=== PATIENT | female | born 1970 | race Caucasian/White ===

== ENCOUNTER 2024-11-23 14:48 | Outpatient (AMB) | payer MEDICARE, SELFPAY ==
[2024-11-23 15:01] VITALS: BP 133/60; PULSE 69; RESP 20; O2SAT 100; BMI 27.3
--- NOTE | 2024-11-23 15:01 | MHC.OFFVIS ---
Vital Signs 11/23/24 15:01 Height 4 ft 11 in Weight 135 lb BMI 27.3 BP 133/60 Blood Pressure Location Lt brachial Position Sitting Respiration 20 Pulse 69 Pulse Source Pulse Oximeter Pulse Oximetry (%) 100 Oxygen Delivery Method Room Air Intake Visit Reasons: Chronic Bilateral Low Back Pain Physician Vice President Required: No Allergies No Known Allergies Allergy (Verified 11/23/24 15:02) HPI Comments Details: Marguerite is very pleasant 53 years old female who presents in my office with complains on multiple pain generators including pain in the lower back with radiation to the right hip and right mid thigh but not below that level as well as pain in the neck pain in the right shoulder pain in the right elbow and pain in the left wrist she also complains on pain in bilateral feet. She reports that pain started 5 years ago without inciting events. Because of her pain she can not sleep normally can not do activities of daily living can not take care of herself can not function normally she is on permanent disability. She needs walker for ambulation cold application weather changes and motions aggravate her pain she reports pain most severe in stent standing and prolonged walking. Forward also aggravate her pain. Heat applications and oral medications make her pain slightly better. Her pain is most severe in the morning and less severe in the early afternoon. In terms of tissue damage he reports her pain as pulsing throbbing pounding, tingling stinging, dull hurting heavy, tiring exhausting, tight squeezing and tearing sensation. She had multiple sessions of physical therapy in the past without any improvement. She had chiropractic manipulation with minimal short-lived improvement. She had massage therapy with short improvement. She had herbal and homeopathic treatment without improvement. She tried NSAIDs without any help, she tried Tylenol without pain improvement. She had x-ray of the lumbar spine which demonstrated significant spondylosis, unfortunately I do not have formal report of this study but the patient gave me the report to read on herself phone. She never received any injections. She reports past medical history of syncope fatigue and headaches she reports anemia shortness of breath and asthma she is diabetic she has digestive problem and arthritis she is suffering from PTSD. She denies any surgery. She denies smoking cigarettes admits rare alcohol drinks admits daily caffeinated beverages and she denies recreational drugs. Review of Systems Const All systems reviewed & are unremarkable except as noted in HPI and below ENT Reports Normal hearing present Neuro Reports Normal hearing present, Denies Abnormal speech present, Denies confusion and Denies Sensory deficit (Neuro) Psych Denies confusion Physical Exam Vital Signs: Last Vital Signs Pulse 69 11/23/24 15:01 Resp 20 11/23/24 15:01 BP 133/60 11/23/24 15:01 Pulse Ox 100 11/23/24 15:01 Oxygen Delivery Method Room Air 11/23/24 15:01 BMI result Body Mass Index 27.3 Const General: no acute distress; No confusion Orientation/consciousness: patient oriented x3 and No confusion Eyes General: appearance normal, both eyes and all related structures Pupils: Equal, round and reactive pupils present EOM: EOMs intact bilaterally Neck Neck: Yes full ROM Chest Chest palpation & inspection: normal inspection of the chest Resp Effort & Inspection: normal respiratory effort, able to speak in complete sentences, normal respiratory pattern, no audible wheezes and no cough Cardio Jugular venous distension: no JVD GI Inspection: Yes normal to inspection Back/Spine/Pelvis Other: Able to stand on bilateral tiptoes in bilateral heels. Able to flex herself forward with difficulty denies any difficulty flexing backwards. Maynor test, Gaenslen test, pelvic compression test, 14 finger test are positive bilaterally more on the right and less on, loading test is positive bilaterally as well. SLR is negative bilaterally. Lasegue test is negative bilaterally. Neuro General: patient oriented x3, gait normal and No confusion Cranial nerves: Yes CN's II-XII intact bilaterally, Yes Equal, round and reactive pupils present, Yes Normal hearing present and Yes Ability to bilaterally elevate shoulders present Speech: No Abnormal speech present Gait exam (Neuro): Normal gait present Motor exam (neuro): 5/5 motor strength present throughout Sensory Exam: No Sensory deficit (Neuro) Extrem General: No pedal edema Psych Speech and movement: Normal speech and movement present Affect: normal affect Attitude: cooperative Thought process: Normal thought process present Thought content: Normal thought content present Insight: Good insight present (Psych) Judgement: Good judgement present (Psych) Assessment & Plan Assessment & Plan (1) Spondylosis of lumbar region without myelopathy or radiculopathy: Code(s): M47.816 - Spondylosis without myelopathy or radiculopathy, lumbar region Category: Medical (2) Sacroiliitis: Code(s): M46.1 - Sacroiliitis, not elsewhere classified Category: Medical (3) Sacroiliac joint dysfunction of both sides: Code(s): M53.3 - Sacrococcygeal disorders, not elsewhere classified Category: Medical (4) Chronic pain syndrome: Code(s): G89.4 - Chronic pain syndrome Category: Medical Plan 1. This patient exhausted conservative measures. Oswestry disability pain score was administered to her today total score is 32 and therefore patient has severe disability. 2. Patient is suffering from spondylosis of the lumbar spine and sacroiliitis. I offered her diagnostic sacroiliac joint injection bilateral 1st. We will evaluate the results of the injection in probably proceed after that with therapeutic sacroiliac joint injections. 3. After that the patient will be scheduled for diagnostic medial branch block L3, L4, dorsal ramus L5 bilateral to assess the results of this injection on her pain. Next appointment will be scheduled after the diagnostic sacroiliac joint injection. Coding Level of Care Code New Pt Level 3 (02422) Diagnoses Spondylosis of lumbar region without myelopathy or radiculopathy M47.816 Sacroiliitis M46.1 Sacroiliac joint dysfunction of both sides M53.3 Chronic pain syndrome G89.4
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
--- OUTSIDE RECORDS SUMMARY | 2024-11-23 15:21 | XMS_ITS | Clinical Summary ---
Author Organization [employer] Address [address] [place] [address] Care Team Providers Care Electric Mule Driver Name Role Phone Anna Magana MD Primary Care Provider Allergies No known active allergies Medications cyclobenzaprine (FLEXERIL) 5 mg tablet Take 1 tablet (5 mg total) by mouth 3 (three) times a day for 5 days. 15 tablet 12/20/2020 Active Active Problems No known active problems Social History Tobacco Use Types Packs/Day Years Used Date Smoking Tobacco: Never Assessed Comments Unknown Sex and Gender Information Value Date Recorded Sex Assigned at Not on file Legal Sex Female 9:58 PM EDT Gender Identity Not on file Sexual Orientation Not on file Last Filed Vital Signs Vital Sign Reading Time Taken Comments Blood Pressure 136/77 12/20/2020 2:56 AM EDT Pulse - - Temperature 36.7 C (98 F) 12/20/2020 2:56 AM EDT Respiratory Rate 12 12/20/2020 2:56 AM EDT Oxygen Saturation 97% 12/20/2020 2:56 AM EDT Inhaled Oxygen Concentration - - Weight - - Height - - Body Mass Index - - Plan of Treatment Health Maintenance Due Date Last Done Comments CT Colonography 1969 Colonoscopy 1969 Colorectal Cancer Screening 1969 FIT-DNA 1969 FIT 1969 FOBT 1969 Mammogram 1969 Sigmoidoscopy 1969 Medicare Annual Wellness Visit 12/02/1987 Tdap and Td Vaccines Adult 1988 Pap Smear 1990 Cervical Cancer Screening 12/02/1999 HPV/Cotest 12/02/1999 Pneumococcal Vaccine: 50+ Ye ars (1 of 1 - PCV) 12/02/2019 Zoster Vaccines (1 of 2) 12/02/2019 COVID-19 Vaccine (1 - 2023-2 5 season) 2024 Influenza Vaccine (#1) 2025 HIB Vaccines Aged Out No longer eligi ble based on patient's age to complete this topic HPV Vaccines (No Doses Required) Completed Hepatitis A Vaccines Aged Out No long er eligible based on patient's age to complete this topic IPV Vaccines Aged Out No longer eligi ble based on patient's age to complete this topic Meningococcal Vaccine Aged Out No temi ravi eligible based on patient's age to complete this topic RSV <20 Months Aged Out No longer simón gible based on patient's age to complete this topic Insurance MEDICAID OUT-STATE MEDICARE MANAGED MEDICARE GENERIC Care Teams Electric Mule Driver Relationship Specialty Start Date End Date Anna Magana MD PCP - General Internal Medicine 12/19/20
== END 2024-11-23 15:17 | disposition home or self-care (01) ==
LOC: HO.PMC 14:49
PROVIDERS: PCP Internal Medicine; Referring Provider Physician Assistant; Visit Provider Anesthesiology
DX: G89.4 Chronic pain syndrome (principal); M47.816 Spondylosis without myelopathy or radiculopathy, lumbar region; M46.1 Sacroiliitis, not elsewhere classified; M53.3 Sacrococcygeal disorders, not elsewhere classified
CPT/HCPCS: 99203

== ENCOUNTER → 2024-11-23 14:48 | Outpatient (BNVA) | payer MEDICARE, SELFPAY | PROVIDERS: PCP Internal Medicine; Referring Provider Physician Assistant; Visit Provider Anesthesiology | DX: M47.816 Spondylosis without myelopathy or radiculopathy, lumbar region (principal); M46.1 Sacroiliitis, not elsewhere classified; M53.3 Sacrococcygeal disorders, not elsewhere classified; G89.4 Chronic pain syndrome | CPT/HCPCS: 99202 ==

== ENCOUNTER 2025-01-24 06:17 | Outpatient (REF) | payer OTHER, SELFPAY ==
--- NOTE | ~2025-01-24 | FL_ITS ---
EXAMINATION: FL GUIDANCE ONLY HISTORY: M53.3 - Sacrococcygeal disorders, not elsewhere classified COMPARISON: None available. TECHNIQUE: Fluoroscopy time: 0.3 minutes. Cumulative Dose: 4.62 mGy. DAP: 0.0550 mGym2 Images: 4. FINDINGS: Fluoroscopic spot films of the pelvis demonstrate needles in the regions of the bilateral sacroiliac joints. FL/FL guidance in treatment room IMPRESSION: Fluoroscopy during procedure. Please see procedure report for additional information. Electronically signed by: Chucho Jurado MD 01/24/2025 08:25 AM EDT
--- OUTSIDE RECORDS SUMMARY | 2025-01-24 06:20 | XMS_ITS | Clinical Summary ---
Author Organization [employer] Address [address] [place] [id number] Care Team Providers Care Rubber Engraver Name Role Phone Anna Magana MD Primary [...] COVID-19 Vaccine (1 - 2023-2 5 season) 2025 Influenza Vaccine (#1) 2025 HIB Vaccines Aged [...] OUT-STATE MEDICARE MANAGED MEDICARE GENERIC Care Teams Rubber Engraver Relationship Specialty Start Date End Date Anna Magana MD PCP - General Internal Medicine 12/19/20
--- OUTSIDE RECORDS SUMMARY | 2025-01-24 06:20 | XMS_ITS | Encounter Summary ---
Author Organization [facility] Address [address] [place] [address] Care Team Providers Care Courtesy Van Driver Name Role Phone Anna Magana MD Primary Care Provider [phone] Encounter Details Date Type Department Care Team ([facility] st Contact Info) Description 12/20/2020 Procedure Pass [facility], Radiology (CT Scan) [address] [place] [id number] Social History Tobacco Use Types Packs/Day Years Used Date Smoking Tobacco: Never Assessed Comments Unknown Sex and Gender Information Value Date Recorded Sex Assigned at Not on file Legal Sex Female 9:58 PM EDT Gender Identity Not on file Sexual Orientation Not on file COVID-19 Exposure Response Date Recorded In the last month, have you been in contact with someone who was confirmed or suspected to have Coronavirus / COVID-19? No / Unsure 12/19/2020 10:25 PM EDT documented as of this encounter Plan of Treatment Not on file documented as of this encounter Visit Diagnoses Not on filedocumented in this encounter Care Teams Courtesy Van Driver Relationship Specialty Start Date End Date Anna Magana MD PCP - General Internal Medicine 12/19/20 documented as of this encounter
--- OUTSIDE RECORDS SUMMARY | 2025-01-24 06:20 | XMS_ITS | Clinical Summary ---
Author Organization [address] [place] [address] Address [address] [place] [address] Phone Care Team Providers Care Bias Binding Cutter Name Role Phone Nick Estevez MD Primary Care Provider [phone] Allergies Active Allergy Reactions Criticality Noted Date Comments Animal Dander 07/04/2024 ducks Cat Dander 07/04/2024 House Dust 02/26/2024 Medications gabapentin (NEURONTIN) 800 mg tablet Take 1 tablet (800 mg total) by mouth at bedtime. Active citalopram (CeleXA) 20 mg tablet Take 1 tablet (20 mg total) by mouth 1 (one) time each day. Active tiZANidine (ZANAFLEX) 4 mg capsule Take 1 capsule (4 mg total) by mouth 3 (three) times a day. Active albuterol HFA (PROAIR HFA ; PROVENTIL HFA ; VENTOLIN HFA) 90 mcg/actuation inhaler Inhale 2 puffs by mouth every 6 (six) hours if needed for wheezing. Active simvastatin (ZOCOR) 20 mg tablet Take 1 tablet (20 mg total) by mouth at bedtime. Active oxyBUTYnin (DITROPAN) 5 mg tablet Take 1 tablet (5 mg total) by mouth 1 (one) time each day. Active multivitamin tablet Take 1 tablet by mouth 1 (one) time each day. 024 Active fludrocortisone (FLORINEF) 0.1 mg tabletIndicatio ns:Familial dysautonomia (fernanda-day) (CMS/HCC V24, CMS/HCC V28) TAKE 1 TABLET BY MOUTH EVERY DAY 90 tablet 1 025 Active prazosin (MINIPRESS) 2 mg capsule Take 1 capsule (2 mg total) by mouth at bedtime. Active blood-glucose meter misc Use daily or as directed for monitoring of diabetes. 1 each 025 2025 Active lancets lancets Check blood sugar 4 times a day or as directed. 200 each 025 2025 Active glucose blood test strip Pt test 4 times a day 100 each 025 2025 Active glipiZIDE (GLUCOTROL XL) 2.5 mg 24 hr tablet Take 1 tablet (2.5 mg total) by mouth 1 (one) time each day. 90 tablet 1 025 Active Trulicity 0.75 mg/0.5 mL pen injector injection INJECT 0.75 MG SUBCUTANEOUSLY ONE TIME PER WEEK 6 mL 1 025 Active Wixela Inhub 100-50 mcg/dose diskus inhaler INHALE 1 PUFF BY MOUTH 2 TIMES A DAY 60 each 3 025 Active folic acid (FOLVITE) 1 mg tablet TAKE 1 TABLET BY MOUTH EVERY DAY 90 tablet 025 Active pantoprazole (PROTONIX) 40 mg EC tablet TAKE 1 TABLET BY MOUTH EVERY MORNING (BEFORE BREAKFAST) 90 tablet 025 Active pantoprazole (PROTONIX) 40 mg EC tablet TAKE 1 TABLET BY MOUTH EVERY MORNING (BEFORE BREAKFAST) 90 tablet 1 025 2024 Discontinued Active Problems Problem Noted Date Diagnosed Date Hyperlipidemia 07/04/2024 Assessment & Plan (07/04/2024 11:27 AM EST): I like patient to get a lipid panel drawn. I like her LDL to be under 100 closer to 70. Educated her on adhering to a cardiac healthy diet. Orders: Lipid panel; Future Lateral epicondylitis of right elbow 04/18/2024 Medial epicondylitis of right elbow 04/18/2024 LVH (left ventricular hypertrophy) 02/26/2024 Assessment & Plan (07/04/2024 11:27 AM EST): Amyloid workup was negative. Will look to update echocardiogram next year or if symptoms worsen, or new symptoms arise. Assessment & Plan (03/29/2024 10:22 AM EST): Patient had recent lab workup to rule out amyloidosis. Can monitor in the future with echocardiograms. Orders: ECG 12 lead Encounters Date Type Department Care Team Description 01/13/2025 Telephone [facility] - [address] [phone] Brittany Wright MD 01/11/2025 11:00 AM EDT Office Visit Urogynecology - [address] [place] [place] [address] Sada Phelps MD Nocturnal enuresis (Primary Dx); Urinary incontinence, unspecified type; Incontinence of feces with fecal urgency; Recurrent isolated sleep paralysis; Parasomnia of non-organic origin 12/23/2024 Telephone Gastroenterology - [place] [address] [place] [address] Char Sullivan MD 11/25/2024 9:03 AM EDT - 11/25/2024 11:59 PM EDT Hospital Encounter Radiology Department - [address] [phone] Encounter for screening mammogram for breast cancer Discharge Disposition: Home or Self Care from Last 3 Months Surgical History Surgery Date Site/Laterality Comments GASTRIC BYPASS COLONOSCOPY HERNIA REPAIR CARPAL TUNNEL RELEASE Bilateral 2001 for left, 2003 for right ESOPHAGOGASTRODUODENOSCOPY HYSTERECTOMY 2011 Medical History Medical History Date Comments Acute adjustment disorder with anxiety Asthma Diabetes mellitus (CMS/HCC V24, CMS/HCC V28) GERD (gastroesophageal reflux disease) Hyperlipidemia IBS (irritable bowel syndrome) Inguinal hernia PTSD (post-traumatic stress disorder) Osteoarthritis Carpal tunnel syndrome Depression Avascular necrosis (CMS/HCC V24, CMS/HCC V28) Family History Medical History Relation Name Comments other Maternal Grandfather Maternal Grandmother Breast cancer Other cousin-paternal other Paternal Grandfather other Paternal Grandmother Relation Name Status Comments Maternal Grandfather Maternal Grandmother Other cousin-paternal Alive Paternal Grandfather Paternal Grandmother Social History Tobacco Use Types Packs/Day Years Used Date Smoking Tobacco: Never Smokeless Tobacco: Never Alcohol Use Standard Drinks/Week Comments Not Currently 0 (1 standard drink = 0.6 oz pur e alcohol) Housing Instability Answer Date Recorde d Are you worried that in the next 2 months you may not have stable housing? No 10/04/2024 Food Access & Nutrition Answer Date Rec orded Do you have access to a vari ety of food including fruits and vegetables? Yes 10/04/2024 Access to Healthcare Answer Date Record ed Within the last 3 months, ho w many times did you visit the emergency department for your medical care? 0 10/04/2024 Health Literacy Answer Date Recorded How often do you need to hav e someone help you when you read instructions, pamphlets, or other written material from your doctor or pharmacy? Rarely 10/04/2024 Caregiver: How often do you need to have someone help you when you read instructions, pamphlets, or other written material from your doctor or pharmacy? Not on file 10/04/2024 Financial Risk Answer Date Recorded How hard is it for you to pa y for the very basics like food, housing, medical care, and air conditioning / heating? Somewhat hard 10/04/2024 Transportation Answer Date Recorded Has the lack of transportati on kept you from meetings, work, or from getting things needed for daily living? No Has the lack of transportati on kept you from medical appointments or from getting medications? No 10/04/2024 Social Isolation Answer Date Recorded How often do you feel lonely or isolated from those around you? Sometimes 10/04/2024 Food Risk Answer Date Recorded Within the past 12 months we worried whether our food would run out before we got money to buy more. Never true 10/04/2024 Within the past 12 months th e food we bought just didn't last and we didn't have money to get more. Never true 10/04/2024 Dependent Care Answer Date Recorded Do you need help finding or paying for care for your loved ones. For example, children's nursery assistant or elderly care for an older adult? No 10/04/2024 Education Answer Date Recorded Do you think completing more education or training, like finishing a GED, going to college, or learning a trade, would be helpful for you? Patient declined 10/04/2024 Employment and Income Answer Date Recor ded During the last four weeks, have you been actively looking for work? No 10/04/2024 Living Situation Answer Date Recorded What is your living situation? 0 10/04/2024 Comments No Sex and Gender Information Value Date Recorded Sex Assigned at Not on file Legal Sex Female 4:52 AM EST Gender Identity Not on file Sexual Orientation Not on file Obstetrics History Para Term AB IAB SAB Ectopic Multiple Livin g Live Births 3 3 3 3 Date Outcome GA Total Labor Labor// Weight Sex Type Anes PTL Reema A1 A5 Name Clin Term Term Term Last Filed Vital Signs Vital Sign Reading Time Taken Comments Blood Pressure 125/69 01/11/2025 11:04 AM EDT Pulse 74 01/11/2025 11:04 AM EDT Temperature 36.7 C (98.1 F) 10/04/2024 3:47 PM EDT Respiratory Rate 16 10/04/2024 3:47 PM EDT Oxygen Saturation 99% 07/04/2024 10:41 AM EST Inhaled Oxygen Concentration - - Weight 64.4 kg (142 lb) 01/11/2025 11:04 AM EDT Height 149.9 cm (4' 11 ) 10/04/2024 3:47 PM EDT Body Mass Index 28.68 10/04/2024 3:47 PM EDT Plan of Treatment Upcoming Encounters Date Type Department Care Team (Late st Contact Info) Description 02/06/2025 1:30 PM EDT Procedure visit Urogynecology [address] [phone] Sada Phelps MD [address] [facility] [address] [place] [address] Health Maintenance Due Date Last Done Comments Diabetes: Annual Retina Eye Exam 12/02/1979 Hepatitis B Vaccines (1 of 3 - 19+ 3-dose series) 1988 Pneumococcal Vaccine: 50+ Years (1 of 2 - PCV) 1988 Cervical Cancer Screening: HPV 1990 Zoster Vaccines (1 of 2) 12/02/2019 Colorectal Cancer Screening: Colonoscopy 04/19/2022 Medicare Annual Wellness Visit 04/19/2022 DTaP,Tdap,and Td Vaccines (2 - Td or Tdap) 07/20/2024 07/20/2014 COVID-19 Vaccine (3 - season) 2025 03/20/2022, 02/11/2021 Influenza Vaccine (#1) 2025 , 03/15/2019, 01/22/2018, Additional history exists Diabetes: Blood Sugar Control Test (HGBA1C) 02/08/2025 08/09/2024, 02/15/2024 Diabetes: Annual Urine Albumin-Creatinine Ratio (uACR) 08/09/2025 08/09/2024 Diabetes: Annual GFR (Glomerular Filtration Rate) 08/09/2025 08/09/2024 Social Influencers of Health Screening 10/04/2025 10/04/2024 Diabetes: Annual Foot Exam 10/11/2025 10/11/2024 Breast Cancer Screening 11/25/2026 11/26/19 25, 11/19/2023, 11/19/2023, Additional history exists Cholesterol Screening (Lipid Panel) 08/09/2029 08/09/2024 HIV Screening Completed 08/09/2024 Hepatitis C Screening Completed 08/09/2024 Depression Screening Completed 10/04/2024 HIB Vaccines Aged Out No longer eligi ble based on patient's age to complete this topic HPV Vaccines Aged Out No longer eligi ble based on patient's age to complete this topic Hepatitis A Vaccines Aged Out No long er eligible based on patient's age to complete this topic IPV Vaccines Aged Out No longer eligi ble based on patient's age to complete this topic MMR Vaccines Aged Out No longer eligi ble based on patient's age to complete this topic Meningococcal ACWY Vaccine Aged Out N o longer eligible based on patient's age to complete this topic Meningococcal B Vaccine Aged Out No l onger eligible based on patient's age to complete this topic RSV Immunization Patients Under 20 months Aged Out No longer eligible based on patient's age to complete this topic Varicella Vaccines Aged Out No longer eligible based on patient's age to complete this topic Goals Goal Patient Goal Type Associated Problems Recent Progress Patient-Stated? Author STG 4-6 Visits General Yes Tom Ge, OT Note: Pt to report pain in R elbow <= 4/10 Pt to demo increased shoe lay out planner strength >= 30# to be able to cut her food Pt will demo improved fx'l use R UE as evidenced by QD score <= 75 to be able to aid in dressing self Pt will perform initial HEP MOD I Pt goal General Yes Tom Ge, OT Note: To play with my grandkids LTG 10-12 Visits General No Tom Ge, OT Note: Pt to report pain in R elbow <= 2/10 Pt to demo increased shoe lay out planner strength >= 40# to be able to carry a shopping bag Pt will demo improved fx'l use R UE as evidenced by QD score <= 50 to be able to aid in bathing self Pt will perform HEP MOD I Procedures Procedure Name Priority Date/Time Associated Diagnosis Comments MG MAMMO DIGITAL SCREENING W FEROZ BILAT Routine 11/25/2024 9:13 AM EDT Encounter for screening mammogram for breast cancer HEPATITIS PANEL, ACUTE WITH REFLEX TO CONFIRMATION Routine 08/09/2024 11:59 AM EDT Screen for STD (sexually transmitted disease) HIV 1, 2 ANTIBODY, P24 ANTIGEN WITH REFLEX TO DIFFERENTIATION Routine 08/09/2024 11:59 AM EDT Screen for STD (sexually transmitted disease) MICROALBUMIN CREATININE URINE RATIO Routine 08/09/2024 11:59 AM EDT Orthostatic hypotension Vasovagal syncope Type 2 diabetes mellitus with diabetic autonomic neuropathy, without long-term current use of insulin (CMS/HCC V24, CMS/HCC V28) Mild persistent asthma without complication Fibromyalgia Anxiety and depression Nightmares BASIC METABOLIC PANEL Routine 08/09/2024 11:59 AM EDT Orthostatic hypotension Vasovagal syncope Type 2 diabetes mellitus with diabetic autonomic neuropathy, without long-term current use of insulin ([facility] V24, [facility] V28) Mild persistent asthma without complication Fibromyalgia Anxiety and depression Nightmares HEMOGLOBIN A1C Routine 08/09/2024 11:59 AM EDT Orthostatic hypotension Vasovagal syncope Type 2 diabetes mellitus with diabetic autonomic neuropathy, without long-term current use of insulin ([facility] V24, [facility] V28) Mild persistent asthma without complication Fibromyalgia Anxiety and depression Nightmares LIPID PANEL WITH REFLEX TO DIRECT LDL Routine 08/09/2024 11:59 AM EDT Hyperlipidemia from Last 3 Months or Most Recently Relevant to Health Maintenance Results * MG Mammo Digital Screening w Feroz bilat (11/25/2024 9:13 AM EDT) Anatomical Region Laterality Modality Breast Bilateral Mammography 11/28/2024 4:46 PM EDT Impressions 11/28/2024 4:47 PM EDT No mammographic evidence of malignancy. BREAST DENSITY: B - There are scattered areas of fibroglandular density. BI-RADS CATEGORY: 1 - NEGATIVE RECOMMENDATION: Screening bilateral mammogram is recommended in 1 year. MAMMO LOCATION: [facility], [address] [place] [address], [id number], . -------- FINAL REPORT -------- Dictated By: Jayshree Martinez Dictated Date: 11/28/2024 16:46 ET Assigned Physician: Jayshree Martinez Reviewed and Electronically Signed By: Jayshree Martinez Signed Date: 11/28/2024 16:47 ET Workstation ID: [id number] Transcribed By: Self Edit Transcribed Date: 11/28/2024 16:46 ET Narrative 11/28/2024 4:47 PM EDT EXAM: Screening Mammogram CLINICAL: 53 years old, Female, routine annual exam. COMPARISON: 11/19/2023 and as far back as 02/03/2020 TECHNIQUE: Bilateral MLO and CC views were obtained digitally with 3-D mammogram (digital breast tomosynthesis). Computer-aided detection was utilized in evaluation of this exam (CAD). FINDINGS: No new suspicious mass, architectural distortion, or suspicious calcifications. Procedure Note Jayshree Martinez MD - 11/28/2024 EXAM: Screening Mammogram CLINICAL: 53 years old, Female, routine annual exam. COMPARISON: 11/19/2023 and as far back as 02/03/2020 TECHNIQUE: Bilateral MLO and CC views were obtained digitally with 3-Dmammogram (digital breast tomosynthesis). Computer-aided detection wasutilized in evaluation of this exam (CAD). FINDINGS: No new suspicious mass, architectural distortion, or suspiciouscalcifications. IMPRESSION: No mammographic evidence of malignancy. BREAST DENSITY: B - There are scattered areas of fibroglandular density. BI-RADS CATEGORY: 1 - NEGATIVE RECOMMENDATION: Screening bilateral mammogram is recommended in 1 year. MAMMO LOCATION: [facility], [address] [place] [address], [id number], . -------- FINAL REPORT -------- Dictated By: Jayshree Martinez Dictated Date: 11/28/2024 16:46 ET Assigned Physician: Jayshree Martinez Reviewed and Electronically Signed By: Jayshree Martinez Signed Date: 11/28/2024 16:47 ET Workstation ID: [id number] Transcribed By: Self Edit Transcribed Date: 11/28/2024 16:46 ET Nick Estevez MD IMG BI PROCEDURES Final Res ult * HIV 1,2 antibody, p24 antigen with reflex to differentiation (08/09/2024 11:59 AM EDT) HIV Combo AB/AG Negative Negative LAB CHEMISTRY METHOD 08/09/2024 7:08 PM EDT [facility] Blood Venous blood specimen / Unknown Venipuncture / Unknown 08/09/2024 11:59 AM EDT 08/09/2024 11:59 AM EDT Narrative [facility] - 08/09/2024 7:08 PM EDT This assay is a 4th generation assay allowing for earlier detection of HIV infection by detecting the presence of the HIV-1 p24 antigen as well as the traditional antibodies to HIV type 1 (including group O) and type 2. Use of a 4th generation assay is the current CDC recommendation for HIV screening. Diamond KNOWLES LAB BLOOD ORDERABLES Fin al Result Performing Organization Address City/[facility]/ZIP Co de Phone Number [facility] [address] [place] [address], [place] [phone] * Lipid panel with reflex to direct LDL (08/09/2024 11:59 AM EDT) [facility] Cholesterol 168 0 - 200 mg/dL LAB CHEMISTRY METHOD 08/09/2024 5:47 PM EDT [facility] Triglycerides 118 0 - 150 mg/dL LAB CHEMISTRY METHOD 08/09/2024 5:47 PM EDT [facility] HDL 70 >=40 mg/dL LAB CHEMISTRY METHOD 08/09/2024 5:47 PM EDT [facility] LDL Calculated 74 0 - 100 mg/dL LAB CHEMISTRY METHOD 08/09/2024 5:47 PM EDT [facility] VLDL Cholesterol Donnie 23.6 mg/dL LAB CHEMISTRY METHOD 08/09/2024 5:47 PM EDT [facility] Non HDL Chol. (LDL+VLDL) 98 <145 mg/dL LAB CHEMISTRY METHOD 08/09/2024 5:47 PM EDT [facility] Chol/HDL Ratio 2.4 0.0 - 4.4 LAB CHEMISTRY METHOD 08/09/2024 5:47 PM EDT [facility] Blood Venous blood specimen / Unknown Venipuncture / Unknown 08/09/2024 11:59 AM EDT 08/09/2024 11:59 AM EDT Denny Guo NP LAB BLOOD ORDERABLES Final Resul t Performing Organization Address [facility]/ZIP Co de Phone Number [facility] [address] [place] [address], [place] [phone] * Hepatitis panel, acute with reflex to confirmation (08/09/2024 11:59 AM EDT) Pathologist [facility] Hepatitis B Surface Ag Negative Negative LAB CHEMISTRY METHOD 08/09/2024 8:14 PM EDT [facility] Hepatitis A Antibody IgM Negative Negative LAB CHEMISTRY METHOD 08/09/2024 8:14 PM EDT [facility] Hep B Core IgM Negative Negative LAB CHEMISTRY METHOD 08/09/2024 8:14 PM EDT [facility] Hepatitis C Antibody Negative Negative LAB CHEMISTRY METHOD 08/09/2024 8:14 PM EDT [facility] Blood Venous blood specimen / Unknown Venipuncture / Unknown 08/09/2024 11:59 AM EDT 08/09/2024 11:59 AM EDT Diamond Bailey [facility] LAB BLOOD ORDERABLES Fin al Result [facility] [address] [place] [address], [place] [phone] * Microalbumin creatinine urine ratio (08/09/2024 11:59 AM EDT) Pathologist [facility] Creatinine, Urine 194.0 mg/dL LAB CHEMISTRY METHOD 08/09/2024 7:08 PM EDT [facility] Microalb, Ur 11.7 0.0 - 29.0 mg/L LAB CHEMISTRY METHOD 08/09/2024 7:08 PM EDT [facility] Microalb/Creat Ratio 6 <30 mg/g creat LAB CHEMISTRY METHOD 08/09/2024 7:08 PM EDT [facility] Urine Urine specimen obtained by clean catch procedure / Unknown Non-blood Collection / Unknown 08/09/2024 11:59 AM EDT 08/09/2024 11:59 AM EDT Nick Estevez MD LAB URINE ORDERABLES Final Result [facility] [address] [place] [address], [place] [phone] * Hemoglobin A1c (08/09/2024 11:59 AM EDT) Pathologist [facility] Hemoglobin A1C 5.9 <6.5 % LAB CHEMISTRY METHOD 08/09/2024 10:31 PM EDT [facility] Mean Bld Glu Estim. 123 mg/dL LAB CHEMISTRY METHOD 08/09/2024 10:31 PM EDT [facility] Blood Venous blood specimen / Unknown Venipuncture / Unknown 08/09/2024 11:59 AM EDT 08/09/2024 11:59 AM EDT Nick Estevez MD LAB BLOOD ORDERABLES Final Result Performing Organization Address City/[facility]/ZIP Co de Phone Number [facility] [address] [place] [address], [place] [phone] * Basic metabolic panel (08/09/2024 11:59 AM EDT) Pathologist [facility] Sodium 138 133 - 145 mmol/L LAB CHEMISTRY METHOD 08/09/2024 5:47 PM EDT [facility] Potassium 4.4 3.5 - 5.5 mmol/L LAB CHEMISTRY METHOD 08/09/2024 5:47 PM EDT [facility] Chloride 104 96 - 110 mmol/L LAB CHEMISTRY METHOD 08/09/2024 5:47 PM EDT [facility] CO2 29 21 - 32 mmol/L LAB CHEMISTRY METHOD 08/09/2024 5:47 PM EDT [facility] Anion Gap 5 3 - 11 LAB CHEMISTRY METHOD 08/09/2024 5:47 PM EDT [facility] Glucose 81 70 - 100 mg/dL LAB CHEMISTRY METHOD 08/09/2024 5:47 PM EDT [facility] BUN 12 5 - 25 mg/dL LAB CHEMISTRY METHOD 08/09/2024 5:47 PM EDT [facility] Creatinine 0.76 0.50 - 1.10 mg/dL LAB CHEMISTRY METHOD 08/09/2024 5:47 PM EDT [facility] eGFR 93 >=60 mL/min/1. 73m2 LAB CHEMISTRY METHOD 08/09/2024 5:47 PM EDT [facility] Comment:Calculation based on the Chronic Kidney Disease Epidemiology Collaboration (CKD-EPI) equation refit without adjustment for race. BUN/Creatinine Ratio 15.8 LAB CHEMISTRY METHOD 08/09/2024 5:47 PM EDT [facility] Calcium 9.2 8.5 - 10.5 mg/dL LAB CHEMISTRY METHOD 08/09/2024 5:47 PM EDT [facility] Blood Venous blood specimen / Unknown Venipuncture / Unknown 08/09/2024 11:59 AM EDT 08/09/2024 11:59 AM EDT Nick Estevez MD LAB BLOOD ORDERABLES Final Result [facility] [address] [place] [address], from Last 3 Months or Most Recently Relevant to Health Maintenance Insurance [facility] MEDIC[facility] Member Subscriber Plan / Payer (Ef fective 2016-Present) Name:MARGUERITE VASQUEZ Relation to Subscriber:Self Name:Marguerite Vasquez Payer ID:[id number] Group ID:[id number] Type:Not on file Address: [place] [id number] [place] [id number] Advance Directives Documents on File Type Date Recorded Patient Roll Picker Expl anation Health Care Decision (hx) 04/09/2019 AD ALANIS DIRECTIVE Health Care Decision (hx) 04/09/2019 AD ALANIS DIRECTIVE Health Care Decision (hx) 04/09/2019 AD ALANIS DIRECTIVE Health Care Decision (hx) 04/09/2019 AD ALANIS DIRECTIVE Health Care Decision (hx) 04/09/2019 AD ALANIS DIRECTIVE Health Care Decision (hx) 04/09/2019 AD ALANIS DIRECTIVE Health Care Decision (hx) 04/09/2019 AD ALANIS DIRECTIVE Health Care Decision (hx) 04/09/2019 AD ALNAIS DIRECTIVE Health Care Decision (hx) 04/09/2019 AD ALANIS DIRECTIVE Health Care Decision (hx) 04/09/2019 AD ALANIS DIRECTIVE Health Care Decision (hx) 04/09/2019 AD ALANIS DIRECTIVE Health Care Decision (hx) 04/09/2019 AD ALANIS DIRECTIVE Health Care Decision (hx) 04/09/2019 AD ALANIS DIRECTIVE Health Care Decision (hx) 04/09/2019 AD ALANIS DIRECTIVE Health Care Decision (hx) 04/09/2019 AD ALANIS DIRECTIVE Health Care Decision (hx) 04/09/2019 AD ALANIS DIRECTIVE Health Care Decision (hx) 04/09/2019 AD ALANIS DIRECTIVE Health Care Decision (hx) 04/09/2019 AD ALANIS DIRECTIVE Health Care Decision (hx) 04/09/2019 AD ALANIS DIRECTIVE Care Teams Bias Binding Cutter Relationship Specialty Start Date End Date Nick Estevez MD [address] [place] [phone] PCP - General Internal Medicine 04/29/24
--- OUTSIDE RECORDS SUMMARY | 2025-01-24 06:20 | XMS_ITS | Encounter Summary ---
Author Organization [employer] Address [address] [place] [address] Care Team Providers Care Shoe Associate Name Role Phone Nick Estevez MD Primary Care Provider [phone] Reason for Visit * Reason Onset Date Comments Breathing Problem 03/28/2024 Encounter Details Date Type Department Care Team (Late st Contact Info) Description 03/28/2024 Nurse Triage Adult Medicine [address] [phone] Nick Estevez MD [address] [place] [address] Social History Tobacco Use Types Packs/Day Years [...] you been using this medicine? - CONTROLLER ([id number]-UTJSORE): Do you take an inhaled steroid? (e.g., [...] ? When was your last menstrual period? [facility] Protocols used: Asthma Attack-A-AH * Raul de [...] traveled recently to another state outside of [place], [place], [place], [place], [place], [place], [place]? no o If yes, did you quarantine [...] of accident/Injury: No If yes, gather 3rd green party insurance information Third Constitution Party Information: not applicable PCP: Nick Estevez MD Payor: [facility] MEDICARE / Plan: [employer] ONE CARE / Product Type: *No Product type* / documented in this encounter Plan of Treatment Upcoming Encounters Date Type Department Care Team (Late st Contact Info) Description 02/06/2025 1:30 PM EDT Procedure visit Urogynecology - [place] [address] [place] [address] Sada Phelps MD [address] [place] [address] [place] [address] documented as of this encounter Visit Diagnoses Not on filedocumented in this encounter Care Teams Shoe Associate Relationship Specialty Start Date End Date Nick Estevez MD [address] [place] [address] PCP - General Internal Medicine 04/29/24 documented as of this encounter
== END 2025-01-24 06:18 | disposition home or self-care (01) ==
LOC: CF 06:17
PROVIDERS: Visit Provider Anesthesiology
DX: M46.1 Sacroiliitis, not elsewhere classified (principal); M47.816 Spondylosis without myelopathy or radiculopathy, lumbar region; M53.3 Sacrococcygeal disorders, not elsewhere classified; G89.4 Chronic pain syndrome
CPT/HCPCS: 27096; J2003; J2795; Q9967

== ENCOUNTER 2025-01-24 06:57 | Outpatient (AMB) | payer OTHER, SELFPAY ==
--- NOTE | 2025-01-24 07:14 | A.OFFVIS_ITS ---
Vital Signs 01/24/25 07:15 Weight 135 lb BP 110/73 Blood Pressure Location Lt brachial Position Sitting Respiration 18 Pulse 66 Pulse Source Pulse Oximeter Pulse Oximetry (%) 100 Oxygen Delivery Method Room Air Intake Visit Reasons: Bilateral Diagnostic SIJ Injections Feed And Farm Management Adviser Required: No Allergies No Known Allergies Allergy (Verified 11/23/24 15:02) Physical Exam Vital Signs: Last Vital Signs Pulse 66 01/24/25 07:15 Resp 18 01/24/25 07:15 BP 110/73 01/24/25 07:15 Pulse Ox 100 01/24/25 07:15 Oxygen Delivery Method Room Air 01/24/25 07:15 Assessment & Plan Assessment & Plan (1) Spondylosis of lumbar region without myelopathy or radiculopathy: Code(s): M47.816 - Spondylosis without myelopathy or radiculopathy, lumbar region Category: Medical (2) Sacroiliitis: Code(s): M46.1 - Sacroiliitis, not elsewhere classified Category: Medical (3) Sacroiliac joint dysfunction of both sides: Code(s): M53.3 - Sacrococcygeal disorders, not elsewhere classified Category: Medical (4) Chronic pain syndrome: Code(s): G89.4 - Chronic pain syndrome Category: Medical Plan Bilateral Diagnostic Sacroiliac joint injection. Informed consent was explained thoroughly to the patient.? All questions about benefits and risks for the procedure were answered. Patient came to the operating room and was positioned prone on the operating table with the pillow under the abdomen.? The lower back and buttocks of the patient were prepped with ChloraPrep prepped and draped with sterile utility towels.? Sterilely draped C-arm was brought over the operating field and sq picture of patient's pelvis was demonstrated on the screen.? For each joint tilting C-arm contralateral to the site of the joint the most posterior portion of the joints was superimposed with anterior silhouette of the joint.? Skin was injected in the projection of the joint slightly medial to the location of the joint with 25 gauge 1/2 inch needle using local lidocaine 2% mixed with ropivacaine 0.5% one to one. After that 22 gauge 3 and 1/2 inch needle was driven to the right and left joint in tunnel vision fashion.? When needle entered the joint capsule injection of the contrast was performed demonstrating intra-articular and minimally periarticular spread of the contrast.? After that 5 cc. of ropivacaine 0.5% was injected into each joint. Upon completion of the injections the needles were removed, Band-Aids were applied.? Upon completion of the injection patient was taken outside of the operating room to the recovery room where recovered uneventfully. Orders: Orders FL guidance in treatment room Today M53.3 - Sacrococcygeal disorders, not e lsewhere classified Coding Level of Care Code Procedure Only Diagnoses Spondylosis of lumbar region without myelopathy or radiculopathy M47.816 Sacroiliitis M46.1 Sacroiliac joint dysfunction of both sides M53.3 Chronic pain syndrome G89.4
[2025-01-24 07:15] VITALS: BP 110/73; PULSE 66; RESP 18; O2SAT 100
== END 2025-01-24 08:11 | disposition home or self-care (01) ==
LOC: HO.PMCPRC 06:57
PROVIDERS: PCP Internal Medicine; Visit Provider Anesthesiology
DX: M46.1 Sacroiliitis, not elsewhere classified (principal); M53.3 Sacrococcygeal disorders, not elsewhere classified; G89.4 Chronic pain syndrome; M47.816 Spondylosis without myelopathy or radiculopathy, lumbar region
CPT/HCPCS: 27096

== ENCOUNTER 2025-01-26 10:54 | Outpatient (AMB) | payer MEDICARE, SELFPAY ==
[2025-01-26 11:01] VITALS: BP 134/70; PULSE 88; RESP 16; O2SAT 99
--- NOTE | 2025-01-26 11:01 | MHC.OFFVIS ---
Vital Signs 01/26/25 11:01 Weight 140 lb BP 134/70 Blood Pressure Location Lt brachial Position Sitting Respiration 16 Pulse 88 Pulse Source Pulse Oximeter Pulse Oximetry (%) 99 Oxygen Delivery Method Room Air Intake Visit Reasons: S/P Bilateral Diagnostic SIJ Injections Tool And Die Technician Required: No Allergies No Known Allergies Allergy (Verified 01/26/25 11:00) HPI Comments Details: Marguerite is back in my office after diagnostic sacroiliac joint injection. She reports no improvement at all after the injection. She reports pain aggravation after the procedure. Last time we decided and discussed possibility of diagnosing her pain with diagnostic medial branch block if sacroiliac joint injection will not be working for her. I will schedule her for L3, L4, dorsal ramus L5 bilateral MBB. I will see the patient immediately after the procedure. Prior: complains on multiple pain generators including pain in the lower back with radiation to the right hip and right mid thigh but not below that level as well as pain in the neck pain in the right shoulder pain in the right elbow and pain in the left wrist she also complains on pain in bilateral feet. pain started 5 years ago without inciting events. She needs walker for ambulation, cold application weather changes and motions aggravate her pain she reports pain most severe in standing and prolonged walking. Forward also aggravate her pain. Heat applications and oral medications make her pain slightly better. Her pain is most severe in the morning and less severe in the early afternoon. She had multiple sessions of physical therapy in the past without any improvement. She had chiropractic manipulation with minimal short-lived improvement. She had massage therapy with short improvement. She had herbal and homeopathic treatment without improvement. She tried NSAIDs without any help, she tried Tylenol without pain improvement. She had x-ray of the lumbar spine which demonstrated significant spondylosis, unfortunately I do not have formal report of this study but the patient gave me the report to read on herself phone. Review of Systems Const All systems reviewed & are unremarkable except as noted in HPI and below ENT Reports Normal hearing present Neuro Reports Normal hearing present, Denies Abnormal speech present, Denies confusion and Denies Sensory deficit (Neuro) Psych Denies confusion Physical Exam Vital Signs: Last Vital Signs Pulse 88 01/26/25 11:01 Resp 16 01/26/25 11:01 BP 134/70 01/26/25 11:01 Pulse Ox 99 01/26/25 11:01 Oxygen Delivery Method Room Air 01/26/25 11:01 Const General: no acute distress; No confusion Orientation/consciousness: patient oriented x3 and No confusion Eyes General: appearance normal, both eyes and all related structures Pupils: Equal, round and reactive pupils present EOM: EOMs intact bilaterally Neck Neck: Yes full ROM Chest Chest palpation & inspection: normal inspection of the chest Resp Effort & Inspection: normal respiratory effort, able to speak in complete sentences, normal respiratory pattern, no audible wheezes and no cough Cardio Jugular venous distension: no JVD GI Inspection: Yes normal to inspection Back/Spine/Pelvis Other: Able to stand on bilateral tiptoes in bilateral heels. Able to flex herself forward with difficulty denies any difficulty flexing backwards. Maynor test, Gaenslen test, pelvic compression test, 14 finger test are positive bilaterally more on the right and less on, loading test is positive bilaterally as well. SLR is negative bilaterally. Lasegue test is negative bilaterally. Neuro General: patient oriented x3, gait normal and No confusion Cranial nerves: Yes CN's II-XII intact bilaterally, Yes Equal, round and reactive pupils present, Yes Normal hearing present and Yes Ability to bilaterally elevate shoulders present Speech: No Abnormal speech present Gait exam (Neuro): Normal gait present Motor exam (neuro): 5/5 motor strength present throughout Sensory Exam: No Sensory deficit (Neuro) Extrem General: No pedal edema Psych Speech and movement: Normal speech and movement present Affect: normal affect Attitude: cooperative Thought process: Normal thought process present Thought content: Normal thought content present Insight: Good insight present (Psych) Judgement: Good judgement present (Psych) Assessment & Plan Assessment & Plan (1) Spondylosis of lumbar region without myelopathy or radiculopathy: Code(s): M47.816 - Spondylosis without myelopathy or radiculopathy, lumbar region Category: Medical (2) Sacroiliitis: Code(s): M46.1 - Sacroiliitis, not elsewhere classified Category: Medical (3) Sacroiliac joint dysfunction of both sides: Code(s): M53.3 - Sacrococcygeal disorders, not elsewhere classified Category: Medical (4) Chronic pain syndrome: Code(s): G89.4 - Chronic pain syndrome Category: Medical Plan 1. This patient exhausted conservative measures. Oswestry disability pain score was administered to her today total score is 32 and therefore patient has severe disability. 2. Patient is suffering from spondylosis of the lumbar spine and sacroiliitis. Sacroiliac joint diagnostic injection resulted in no pain improvement. I will schedule this patient for diagnostic medial branch block L3, L4, dorsal ramus L5 bilaterally. 3. I will evaluate level of pain of this patient after the procedure. n. Next appointment will be scheduled after the medial branch block. Coding Level of Care Code Est Pt Level 3 (00977) Diagnoses Spondylosis of lumbar region without myelopathy or radiculopathy M47.816 Sacroiliitis M46.1 Sacroiliac joint dysfunction of both sides M53.3 Chronic pain syndrome G89.4
--- OUTSIDE RECORDS SUMMARY | 2025-01-26 13:01 | XMS_ITS | Clinical Summary ---
Author Organization [address] [place] [address] Address [address] [place] [address] Phone Care Team Providers Care E Tailer Name Role Phone Nick Estevez MD Primary Care Provider [phone] Allergies Active Allergy Reactions Criticality Noted Date [...] Type Department Care Team Description 01/13/2025 Telephone [facility] - [address] [place] [phone] Brittany Wright MD 01/11/2025 11:00 AM EDT Office Visit Urogynecology - [place] [id number] [place] [address] Sada Phelps MD Nocturnal enuresis (Primary Dx); Urinary incontinence, unspecified type; Incontinence of feces with fecal urgency; Recurrent isolated sleep paralysis; Parasomnia of non-organic origin 12/23/2024 Telephone Gastroenterology - [place] [address] [place] [address] Char Sullivan MD 11/25/2024 9:03 AM EDT - 11/25/2024 11:59 PM EDT Hospital Encounter Radiology Department - [address] [phone] Encounter for screening mammogram for breast cancer [...] care for your loved ones. For example, summer child caregiver or elderly care for an older adult? [...] 02/06/2025 1:30 PM EDT Procedure visit Urogynecology [address] [address] Sada Phelps MD [address] [facility] [address] [place] [address] Health Maintenance Due Date Last Done Comments [...] elbow <= 4/10 Pt to demo increased salesperson furs strength >= 30# to be able to [...] elbow <= 2/10 Pt to demo increased salesperson furs strength >= 40# to be able to [...] neuropathy, without long-term current use of insulin ([facility] V24, [facility] V28) Mild persistent asthma without complication Fibromyalgia Anxiety and depression Nightmares HEMOGLOBIN A1C Routine 08/09/2024 11:59 AM EDT Orthostatic hypotension Vasovagal syncope Type 2 diabetes mellitus with diabetic autonomic neuropathy, without long-term current use of insulin ([facility] V24, [facility] V28) Mild persistent asthma without [...] is recommended in 1 year. MAMMO LOCATION: [facility], [address] [place] [address], [address], . -------- FINAL REPORT -------- Dictated By: Jayshree Martinez Dictated Date: 11/28/2024 16:46 ET Assigned Physician: Jayshree Martinez Reviewed and Electronically Signed By: Jayshree Martinez Signed Date: 11/28/2024 16:47 ET Workstation ID: [id number] Transcribed By: Self Edit Transcribed Date: 11/28/2024 [...] is recommended in 1 year. MAMMO LOCATION: [facility], [address] [place] [address], [address], . -------- FINAL REPORT -------- Dictated By: Jayshree Martinez Dictated Date: 11/28/2024 16:46 ET Assigned Physician: Jayshree Martinez Reviewed and Electronically Signed By: Jayshree Martinez Signed Date: 11/28/2024 16:47 ET Workstation ID: [id number] Transcribed By: Self Edit Transcribed Date: 11/28/2024 16:46 ET Nick Estevez MD IMG BI PROCEDURES Final Res ult * HIV 1,2 antibody, p24 antigen with reflex to differentiation (08/09/2024 11:59 AM EDT) HIV Combo AB/AG Negative Negative LAB CHEMISTRY METHOD 08/09/2024 7:[address] [facility] Blood Venous blood specimen / Unknown Venipuncture / Unknown 08/09/2024 11:59 AM EDT 08/09/2024 11:[address] [facility] - 08/09/2024 7:08 PM EDT [...] ORDERABLES Fin al Result Performing Organization Address City/[facility]/ZIP Co de Phone Number [facility] [address] [place] [address], [place] [phone] * Lipid panel with reflex to direct LDL (08/09/2024 11:59 AM EDT) [facility] Cholesterol 168 0 - 200 mg/dL LAB CHEMISTRY METHOD 08/09/2024 5:[address] [facility] Triglycerides 118 0 - 150 mg/dL LAB CHEMISTRY METHOD 08/09/2024 5:[address] [facility] HDL 70 >=40 mg/dL LAB CHEMISTRY METHOD 08/09/2024 5:[address] [facility] LDL Calculated 74 0 - 100 mg/dL LAB CHEMISTRY METHOD 08/09/2024 5:[address] [facility] VLDL Cholesterol Donnie 23.6 mg/dL LAB CHEMISTRY METHOD 08/09/2024 5:[address] [facility] Non HDL Chol. (LDL+VLDL) 98 <145 mg/dL LAB CHEMISTRY METHOD 08/09/2024 5:[address] [facility] Chol/HDL Ratio 2.4 0.0 - 4.4 LAB CHEMISTRY METHOD 08/09/2024 5:[address] [facility] Blood Venous blood specimen / Unknown Venipuncture / Unknown 08/09/2024 11:59 AM EDT 08/09/2024 11:59 AM EDT Denny Guo NP LAB BLOOD ORDERABLES Final Resul t Performing Organization Address [facility]/ZIP Co de Phone Number [facility] [address] [place] [address], [place] [phone] * Hepatitis panel, acute with reflex to confirmation (08/09/2024 11:59 AM EDT) Pathologist [facility] Hepatitis B Surface Ag Negative Negative LAB CHEMISTRY METHOD 08/09/2024 8:[address] [facility] Hepatitis A Antibody IgM Negative Negative LAB CHEMISTRY METHOD 08/09/2024 8:[address] [facility] Hep B Core IgM Negative Negative LAB CHEMISTRY METHOD 08/09/2024 8:[address] [facility] Hepatitis C Antibody Negative Negative LAB CHEMISTRY METHOD 08/09/2024 8:[address] [facility] Blood Venous blood specimen / Unknown Venipuncture / Unknown 08/09/2024 11:59 AM EDT 08/09/2024 11:59 AM EDT Diamond Bailey KNOWLES LAB BLOOD ORDERABLES Fin al Result [facility] [address] [place] [address], [place] [phone] * Microalbumin creatinine urine ratio (08/09/2024 11:59 AM EDT) Pathologist [facility] Creatinine, Urine 194.0 mg/dL LAB CHEMISTRY METHOD 08/09/2024 7:[address] [facility] Microalb, Ur 11.7 0.0 - 29.0 mg/L LAB CHEMISTRY METHOD 08/09/2024 7:[address] [facility] Microalb/Creat Ratio 6 <30 mg/g creat LAB CHEMISTRY METHOD 08/09/2024 7:[address] [facility] Urine Urine specimen obtained by clean catch procedure / Unknown Non-blood Collection / Unknown 08/09/2024 11:59 AM EDT 08/09/2024 11:59 AM EDT Nick Estevez MD LAB URINE ORDERABLES Final Result [facility] [address] [place] [address], [place] [phone] * Hemoglobin A1c (08/09/2024 11:59 AM EDT) Pathologist [facility] Hemoglobin A1C 5.9 <6.5 % LAB CHEMISTRY METHOD 08/09/2024 10:[address] [facility] Mean Bld Glu Estim. 123 mg/dL LAB CHEMISTRY METHOD 08/09/2024 10:[address] [facility] Blood Venous blood specimen / Unknown Venipuncture / Unknown 08/09/2024 11:59 AM EDT 08/09/2024 11:59 AM EDT Nick Estevez MD LAB BLOOD ORDERABLES Final Result Performing Organization Address City/[facility]/ZIP Co de Phone Number [facility] [address] [place] [address], [place] [phone] * Basic metabolic panel (08/09/2024 11:59 AM EDT) Pathologist [facility] Sodium 138 133 - 145 mmol/L LAB CHEMISTRY METHOD 08/09/2024 5:[address] [facility] Potassium 4.4 3.5 - 5.5 mmol/L LAB CHEMISTRY METHOD 08/09/2024 5:[address] [facility] Chloride 104 96 - 110 mmol/L LAB CHEMISTRY METHOD 08/09/2024 5:[address] [facility] CO2 29 21 - 32 mmol/L LAB CHEMISTRY METHOD 08/09/2024 5:[address] [facility] Anion Gap 5 3 - 11 LAB CHEMISTRY METHOD 08/09/2024 5:[address] [facility] Glucose 81 70 - 100 mg/dL LAB CHEMISTRY METHOD 08/09/2024 5:[address] [facility] BUN 12 5 - 25 mg/dL LAB CHEMISTRY METHOD 08/09/2024 5:[address] [facility] Creatinine 0.76 0.50 - 1.10 mg/dL LAB CHEMISTRY METHOD 08/09/2024 5:[address] [facility] eGFR 93 >=60 mL/min/1. 73m2 LAB CHEMISTRY METHOD 08/09/2024 5:[address] [facility] Comment:Calculation based on the Chronic Kidney Disease Epidemiology Collaboration (CKD-EPI) equation refit without adjustment for race. BUN/Creatinine Ratio 15.8 LAB CHEMISTRY METHOD 08/09/2024 5:[address] [facility] Calcium 9.2 8.5 - 10.5 mg/dL LAB CHEMISTRY METHOD 08/09/2024 5:[address] [facility] Blood Venous blood specimen / Unknown Venipuncture / Unknown 08/09/2024 11:59 AM EDT 08/09/2024 11:59 AM EDT Nick Estevez MD LAB BLOOD ORDERABLES Final Result [facility] [address] [place] [address], from Last 3 Months or Most Recently Relevant to Health Maintenance Insurance [facility] MEDICARE Member Subscriber Plan / Payer (Ef fective 2016-Present) Name:MARGUERITE VASQUEZ Relation to Subscriber:Self Name:Marguerite Vasquez Payer ID:[id number] Group ID:[id number] Type:Not on file Address: [place] [address] [place] [id number] Advance Directives Documents on File Type Date Recorded Patient Property Management Supervisor Expl anation Health Care Decision (hx) 04/09/2019 [...] DIRECTIVE Health Care Decision (hx) 04/09/2019 AD ALANSI DIRECTIVE Health Care Decision (hx) 04/09/2019 AD [...] (hx) 04/09/2019 AD ALANIS DIRECTIVE Care Teams E Tailer Relationship Specialty Start Date End Date Nick Estevez MD [address] [place] [phone] PCP - General Internal Medicine 04/29/24
--- OUTSIDE RECORDS SUMMARY | 2025-01-26 13:01 | XMS_ITS | Encounter Summary ---
Author Organization [employer] Address [address] [place] [address] Care Team Providers Care Car Unloader Name Role Phone Nick Estevez MD Primary Care Provider [phone] Reason for Visit * Reason Onset Date Comments Breathing Problem 03/28/2024 Encounter Details Date Type Department Care Team (Late st Contact Info) Description 03/28/2024 Nurse Triage Adult Medicine [address] [phone] Nick Estevez MD [address] [place] [address] Social History Tobacco Use Types Packs/Day Years [...] you been using this medicine? - CONTROLLER ([id number]): Do you take an inhaled steroid? (e.g., [...] ? When was your last menstrual period? [facility] Protocols used: Asthma Attack-A-AH * Raul de [...] traveled recently to another state outside of [place], [place], [place], [place], [place], [place], [place]? no o If yes, did you quarantine [...] yes, gather 3rd republican insurance information Third Green Party Information: not applicable PCP: Nick Estevez MD Payor: [facility] MEDIC[facility] / Plan: [employer] ONE CARE / Product Type: *No Product type* / documented in this encounter Plan of Treatment Upcoming Encounters Date Type Department Care Team (Late st Contact Info) Description 02/06/2025 1:30 PM EDT Procedure visit Urogynecology - [place] [address] [place] [address] Sada Phelps MD [address] [place] [address] [place] [address] documented as of this encounter Visit Diagnoses Not on filedocumented in this encounter Care Teams Car Unloader Relationship Specialty Start Date End Date Nick Estevez MD [address] [place] [address] PCP - General Internal Medicine 04/29/24 documented as of this encounter
--- OUTSIDE RECORDS SUMMARY | 2025-01-26 13:01 | XMS_ITS | Encounter Summary ---
Author Organization [facility] Address [address] [place] [address] Care Team Providers Care Plating Equipment Tender Name Role Phone Anna Magana MD Primary Care Provider [phone] Encounter Details Date Type Department Care Team ([facility] st Contact Info) Description 12/20/2020 Procedure Pass [facility], Radiology (CT Scan) [address] [place] [id number] Social History Tobacco Use Types Packs/Day Years [...] on filedocumented in this encounter Care Teams Plating Equipment Tender Relationship Specialty Start Date End Date Anna Magana MD PCP - General Internal Medicine 12/19/20 documented as of this encounter
--- OUTSIDE RECORDS SUMMARY | 2025-01-26 13:01 | XMS_ITS | Clinical Summary ---
Author Organization [employer] Address [address] [place] [address] Care Team Providers Care Consultant Intern Name Role Phone Anna Magana MD Primary Care Provider [phone] Allergies No known active allergies Medications cyclobenzaprine [...] OUT-STATE MEDICARE MANAGED MEDICARE GENERIC Care Teams Consultant Intern Relationship Specialty Start Date End Date Anna Magana MD PCP - General Internal Medicine 12/19/20
== END 2025-01-26 11:22 | disposition home or self-care (01) ==
LOC: HO.PMC 10:55
PROVIDERS: PCP Internal Medicine; Visit Provider Anesthesiology
DX: M47.816 Spondylosis without myelopathy or radiculopathy, lumbar region (principal); M46.1 Sacroiliitis, not elsewhere classified; M53.3 Sacrococcygeal disorders, not elsewhere classified; G89.4 Chronic pain syndrome
CPT/HCPCS: 99213

== ENCOUNTER → 2025-01-26 10:54 | Outpatient (BNVA) | payer OTHER, SELFPAY | PROVIDERS: PCP Internal Medicine; Visit Provider Anesthesiology | DX: M46.1 Sacroiliitis, not elsewhere classified (principal); M53.3 Sacrococcygeal disorders, not elsewhere classified; G89.4 Chronic pain syndrome; M47.816 Spondylosis without myelopathy or radiculopathy, lumbar region | CPT/HCPCS: 99212 ==